=== PATIENT | female | born 1970 | race Caucasian/White ===

== ENCOUNTER 2016-11-01 18:20 | Emergency (ER) | payer OTHER ==
[~2016-11-01] VITALS: Ht 170.2 cm; Wt 61.2 kg
[~2016-11-01 18:20] MED LIST: FERR325T28 PO; FOLI1TAB16 PO
[2016-11-01] MEDS ORDERED: NORCO PO (18:37)
[2016-11-01] MEDS ORDERED: SOMA PO (18:37)
--- NOTE | 2016-11-01 18:58 | NUR ---
Patient is still for blood draw, CT scan & urine sample, endorsed to [facility] patel
[2016-11-01] MEDS ORDERED: IV NORMAL SALINE 1000 ML BAG IV ONE (19:00)
[2016-11-01 19:09] LABS: *BILIRUBIN,URIN NEGATIVE (NEGATIVE); *BLOOD, URINE 1+ (NEGATIVE); *COLOR,URINE YELLOW (YELLOW); *KETONES,URINE NEGATIVE (NEGATIVE); *PROTEIN,URINE NEGATIVE (NEGATIVE); *UROBILINOGEN,URINE 0.2 E.U./dl (NORMAL); LEUKOCYTE ESTERASE ,URINE NEGATIVE (NEGATIVE); NITRITE, URINE POSITIVE (NEGATIVE); PH,URINE 5.5 (5.0-8.0); UGLUCOSE NEGATIVE (NEGATIVE)
[2016-11-01 19:14] LABS: *CLARITY,URINE HAZY (CLEAR)
[2016-11-01 19:15] LABS: BACTERIA,URINE MANY /HPF (NONE SEEN); SQUAMOUS EPITHELIAL CELL,UR FEW /HPF (NONE SEEN)
[2016-11-01 19:16] LABS: MUCUS,URINE MANY /LPF (0-FEW)
[2016-11-01 19:21] LABS: BASOPHILS # (AUTO) 0.1 K/uL (0.0-8.0); BASOPHILS % (AUTO) 0.7 % (0.0-2.0); EOSINOPHILS # (AUTO) 0.1 K/uL (0.0-0.7); EOSINOPHILS % (AUTO) 1.8 % (0.0-7.0); HEMATOCRIT 38.5 % (37-47); HEMOGLOBIN 12.1 G/DL (12.0-16.0); LYMPHOCYTES # (AUTO) 1.7 K/UL (0.8-4.8); LYMPHOCYTES % (AUTO) 22.5 % (20.5-51.5); MEAN CORPUSCULAR HEMOGLOBIN 25.1 UUG (27.0-31.0); MEAN CORPUSCULAR HGB CONC 31 g/dL (32.0-37.0); MEAN CORPUSCULAR VOLUME 80.1 FL (81.0-99.0); MONOCYTES # (AUTO) 0.4 K/UL (0.1-1.30); MONOCYTES % (AUTO) 5.8 % (0.0-11.0); NEUTROPHILS # (AUTO) 5.3 K/UL (1.8-8.9); NEUTROPHILS % (AUTO) 69.2 % (38.5-71.5); PLATELET COUNT (AUTO) 316 K/UL (150-450); RED BLOOD CELL COUNT(AUTO) 4.81 MIL/UL (4.2-5.4); WHITE BLOOD COUNT (AUTO) 7.6 K/UL (4.0-11.2)
[2016-11-01 19:29] LABS: CREATININE 0.6 mg/dL (0.6-1.3); POTASSIUM 3.8 mmol/L (3.5-5.1)
[2016-11-01 19:35] LABS: BILIRUBIN,DIRECT 0.1 mg/dL (0.0-0.2); BILIRUBIN,TOTAL 0.2 mg/dL (0.2-1.0); TOTAL PROTEIN, SERUM 7.2 g/dL (6.4-8.2)
[2016-11-01] MEDS ORDERED: IV NORMAL SALINE 250 ML IV ONE (19:46)
[2016-11-01] MEDS ORDERED: IOHEXOL 300MG/ML 100 ML INFUS..BTL ONE (19:46)
[2016-11-01] MEDS ORDERED: NORMAL SALINE FLUSH 10 ML DISP.SYRIN ONE (19:46)
--- NOTE | 2016-11-01 22:25 | NUR ---
Patient discharged to home in stable conditon. Written and verbal after care instructions given. Patient verbalizes understanding of instructions. Ambulated from ER with stable gait. All belongings with patient. Peripheral IV removed prior to discharge.
[2016-11-01 22:35] VITALS: BP 121/74
== END 2016-11-01 22:25 | disposition home or self-care (01) ==
LOC: ER 18:21
DX: N83.202 Unspecified ovarian cyst, left side (principal); F10.20 Alcohol dependence, uncomplicated; F17.200 Nicotine dependence, unspecified, uncomplicated; Z90.710 Acquired absence of both cervix and uterus; Z91.040 Latex allergy status
CPT/HCPCS: 36415; 83690; 85025; A4663; J3490; J7030; J7050; Q9967

== ENCOUNTER 2016-12-19 03:22 | Emergency (ER) | payer OTHER ==
[~2016-12-19] VITALS: Ht 170.2 cm; Wt 59.0 kg
[~2016-12-19 03:22] MED LIST changes: -FOLI1TAB16 PO; +NORCO PO; +SOMA PO
[2016-12-19] MEDS ORDERED: HYDROCODONE/APAP 10-325 MG TABLET PO ONE (04:15)
[2016-12-19] MEDS ORDERED: diphenhydrAMINE 50 MG CAPSULE PO ONE (04:15)
[2016-12-19] MEDS ORDERED: ASPIRIN 81 MG TAB.CHEW PO ONE (04:15)
[2016-12-19] MEDS ORDERED: CARISOPRODOL 350 MG TABLET PO ONE (04:15)
[2016-12-19] MEDS ORDERED: ONDANSETRON ODT 4 MG TAB.RAPDIS SL ONE (04:15)
[2016-12-19 04:40] LABS: BASOPHILS % (AUTO) 0.6 % (0.0-2.0); EOSINOPHILS # (AUTO) 0.1 K/uL (0.0-0.7); EOSINOPHILS % (AUTO) 1.5 % (0.0-7.0); HEMATOCRIT 41.3 % (37-47); HEMOGLOBIN 12.9 G/DL (12.0-16.0); LYMPHOCYTES # (AUTO) 1.4 K/UL (0.8-4.8); LYMPHOCYTES % (AUTO) 17.6 % (20.5-51.5); MEAN CORPUSCULAR HGB CONC 31 g/dL (32.0-37.0); MEAN CORPUSCULAR VOLUME 86.2 FL (81.0-99.0); MONOCYTES # (AUTO) 0.6 K/UL (0.1-1.30); MONOCYTES % (AUTO) 7.9 % (0.0-11.0); NEUTROPHILS # (AUTO) 6.1 K/UL (1.8-8.9); NEUTROPHILS % (AUTO) 72.4 % (38.5-71.5); PLATELET COUNT (AUTO) 317 K/UL (150-450); RED BLOOD CELL COUNT(AUTO) 4.79 MIL/UL (4.2-5.4); WHITE BLOOD COUNT (AUTO) 8.2 K/UL (4.0-11.2)
--- NOTE | 2016-12-19 04:42 | NUR ---
Pt to room, changed into gown and placed on monitor. NSR. Pt c/o upper back pain radiating to her chest for several weeks getting progressively worse. Pt seen by Dr. Roth, ekg obtained. Labs drawn and sent. Xray obtained. Pt medicated for discomfort, will monitor for effects of medication. Pt resting in position of comfort for self.
[2016-12-19 04:44] LABS: CREATININE 0.8 mg/dL (0.6-1.3); POTASSIUM 3.9 mmol/L (3.5-5.1)
[2016-12-19] MEDS ORDERED: ONDANSETRON ODT 4 MG TAB.RAPDIS ONE (04:44)
[2016-12-19] MEDS ORDERED: ASPIRIN 81 MG TAB.CHEW ONE (04:44)
[2016-12-19] MEDS ORDERED: CARISOPRODOL 350 MG TABLET ONE (04:45)
[2016-12-19] MEDS ORDERED: HYDROCODONE/APAP 10-325 MG TABLET ONE (04:45)
[2016-12-19] MEDS ORDERED: diphenhydrAMINE 50 MG CAPSULE ONE (04:45)
[2016-12-19 04:57] LABS: BILIRUBIN,DIRECT 0.1 mg/dL (0.0-0.2); BILIRUBIN,TOTAL 0.2 mg/dL (0.2-1.0); TOTAL PROTEIN, SERUM 7.3 g/dL (6.4-8.2)
--- NOTE | 2016-12-19 05:15 | NUR ---
Pt sts pain has resolved with medication. Pt stable for discharge per Dr. Roth. Pt given ACI. Pt verbalized understanding of dc instructions. Pt ambulated out of ER with steady gait and ride home.
[2016-12-19 05:43] VITALS: BP 146/75
== END 2016-12-19 05:15 | disposition home or self-care (01) ==
LOC: ER 03:25
DX: R07.89 Other chest pain (principal); M54.9 Dorsalgia, unspecified; M62.830 Muscle spasm of back; F17.200 Nicotine dependence, unspecified, uncomplicated; G89.29 Other chronic pain
CPT/HCPCS: 36415; 70030-TC; 71010; 85025; 93005; A4663; Q0162; Q0163

== ENCOUNTER 2017-05-04 01:16 | Emergency (ER) | payer OTHER ==
[~2017-05-04] VITALS: Ht 170.2 cm; Wt 61.2 kg
[~2017-05-04 01:16] MED LIST changes: -FERR325T28 PO
[2017-05-04] MEDS ORDERED: FLUCONAZOLE 150 MG TABLET (01:35)
[2017-05-04] MEDS ORDERED: CARISOPRODOL 350MG TABLETS (01:35)
[2017-05-04] MEDS ORDERED: FERR325T28 PO (01:38)
[2017-05-04] MEDS ORDERED: TDAP DIPH,PERTUSS,TET VAC/PF 0.5 ML DISP.SYRIN IM ONE ×2 (01:45→02:01)
[2017-05-04] MEDS ORDERED: NEOMY/BACITRA/POLYMYXIN B OINT UD PACKET TP ONE ×2 (01:45→02:01)
--- NOTE | 2017-05-04 02:02 | NUR ---
PLACED DRESSING AND TRIPLE ANTIBIOTIC ON RIGHT FOOT WOUND ORDERED
--- NOTE | 2017-05-04 02:07 | NUR ---
Crutches dispensed. Pt instructed on proper use of crutches. Patient able to demonstrate correct use of crutches.
[2017-05-04] MEDS ORDERED: ONDANSETRON ODT 4 MG TAB.RAPDIS SL ONE (02:15)
--- NOTE | 2017-05-04 02:20 | NUR ---
Patient discharged to home in stable conditon. Written and verbal after care instructions given. Patient verbalizes understanding of instructions.
[2017-05-04 02:21] VITALS: BP 122/74
[2017-05-04] MEDS ORDERED: ONDANSETRON ODT 4 MG TAB.RAPDIS ONE ×2 (02:30→02:31)
== END 2017-05-04 02:22 | disposition home or self-care (01) ==
LOC: ER 01:19
DX: S99.921A Unspecified injury of right foot, initial encounter (principal); G89.29 Other chronic pain; L08.9 Local infection of the skin and subcutaneous tissue, unspecified; Z90.710 Acquired absence of both cervix and uterus; F17.200 Nicotine dependence, unspecified, uncomplicated; W22.8XXA Striking against or struck by other objects, initial encounter; Y93.89 Activity, other specified; Y92.89 Other specified places as the place of occurrence of the external cause; Y99.8 Other external cause status
CPT/HCPCS: 73630; 90471; 90715; 99284; A4663; Q0162 ×2

== ENCOUNTER 2017-08-24 22:56 | Emergency (ER) | payer OTHER ==
[~2017-08-24] VITALS: Ht 170.2 cm; Wt 61.2 kg
[~2017-08-24 22:56] MED LIST changes: +CARISOPRODOL 350MG TABLETS; +FERR325T28 PO; -NORCO PO; -SOMA PO
[2017-08-25 00:28] LABS: BASOPHILS # (AUTO) 0.1 K/uL (0.0-8.0); BASOPHILS % (AUTO) 0.8 % (0.0-2.0); EOSINOPHILS # (AUTO) 0.2 K/uL (0.0-0.7); EOSINOPHILS % (AUTO) 2.3 % (0.0-7.0); HEMATOCRIT 44.2 % (31.2-41.9); LYMPHOCYTES # (AUTO) 2.2 K/uL (20.0-40.0); LYMPHOCYTES % (AUTO) 22.7 % (20.5-51.5); MEAN CORPUSCULAR HEMOGLOBIN 32.1 uug (24.7-32.8); MEAN CORPUSCULAR HGB CONC 34 g/dL (32.3-35.6); MEAN CORPUSCULAR VOLUME 94.7 fL (75.5-95.3); MONOCYTES # (AUTO) 0.7 K/uL (2.0-10.0); MONOCYTES % (AUTO) 7.7 % (0.0-11.0); NEUTROPHILS # (AUTO) 6.4 K/uL (1.8-8.9); NEUTROPHILS % (AUTO) 66.5 % (38.5-71.5); PLATELET COUNT (AUTO) 292 K/uL (179-408); RED BLOOD CELL COUNT(AUTO) 4.67 MIL/uL (3.63-4.92); WHITE BLOOD COUNT (AUTO) 9.6 K/uL (3.8-11.8)
[2017-08-25 00:42] LABS: CARBON DIOXIDE 29 mmol/L (21-32); CHLORIDE 103 mmol/L (98-107); CREATININE 0.8 mg/dL (0.6-1.3); GLUCOSE 85 mg/dL (74-106); POTASSIUM 3.6 mmol/L (3.5-5.1); UREA NITROGEN, BLOOD 18 mg/dL (7-18)
[2017-08-25 00:48] LABS: ALANINE AMINOTRANSFERASE 22 U/L (14-59); ALKALINE PHOSPHATASE 61 U/L (50-136); ASPARTATE AMINOTRANSFERASE 13 U/L (15-37); BILIRUBIN,DIRECT < 0.1 mg/dL (0.0-0.2); BILIRUBIN,TOTAL 0.2 mg/dL (0.2-1.0); TOTAL PROTEIN, SERUM 7.9 g/dL (6.4-8.2)
[2017-08-25] MEDS ORDERED: IV NORMAL SALINE 1000 ML BAG IV ONE ×2 (01:45)
--- NOTE | 2017-08-25 02:08 | NUR ---
PT IN BED. PT RESTING QUIETLY WITH VISITOR AT BEDSIDE. PT GETTING 2ND LITER OF FLUID. 1ST WAS WELL TOLERATED. PT STATED THAT SHE STARTED FEELING BETTER AFTER 1ST LT. VSS. NO SIGNS OF DISTRESS WITNESSED AT THIS TIME.
--- NOTE | 2017-08-25 03:02 | NUR ---
Patient discharged to home in stable conditon. Written and verbal after care instructions given. Patient verbalizes understanding of instructions. Patient reported feeling better and denied anxiety upon discharge. Peripheral IV was removed. Patient able to ambulate unassisted with steady gait. Patient left with all personal belongings.
[2017-08-25 03:34] VITALS: BP 124/82
== END 2017-08-25 03:05 | disposition home or self-care (01) ==
LOC: ER 22:56
DX: F41.9 Anxiety disorder, unspecified (principal); R00.2 Palpitations; E86.0 Dehydration; G89.29 Other chronic pain; F17.210 Nicotine dependence, cigarettes, uncomplicated; F12.10 Cannabis abuse, uncomplicated; Z90.710 Acquired absence of both cervix and uterus; Z91.040 Latex allergy status; Z79.899 Other long term (current) drug therapy
CPT/HCPCS: 36415; 70030-TC; 84443; 85025; 85730; 93005; A4663; J7030

== ENCOUNTER 2019-03-09 13:43 | Emergency (ER) | payer MEDICAID, OTHER ==
[~2019-03-09] VITALS: Ht 170.2 cm; Wt 59.0 kg
[~2019-03-09 13:43] MED LIST changes: -CARISOPRODOL 350MG TABLETS; +CARISOPRODOL 350MG TABLETS PO
[2019-03-09] MEDS ORDERED: OMEP20TA20 PO (13:47)
--- NOTE | 2019-03-09 14:00 | NUR ---
mary lou aggarwal at bedside for mse.
[2019-03-09 14:06] LABS: BASOPHILS % (AUTO) 0.7 % (0.0-2.0); EOSINOPHILS # (AUTO) 0.1 K/uL (0.0-0.7); EOSINOPHILS % (AUTO) 1.3 % (0.0-7.0); HEMATOCRIT 43.1 % (31.2-41.9); HEMOGLOBIN 14.3 g/dL (10.9-14.3); LYMPHOCYTES # (AUTO) 1.9 K/uL (20.0-40.0); LYMPHOCYTES % (AUTO) 26.2 % (20.5-51.5); MEAN CORPUSCULAR HGB CONC 33 g/dL (32.3-35.6); MEAN CORPUSCULAR VOLUME 93.6 fL (75.5-95.3); MONOCYTES # (AUTO) 0.7 K/uL (2.0-10.0); NEUTROPHILS # (AUTO) 4.6 K/uL (1.8-8.9); NEUTROPHILS % (AUTO) 62.8 % (38.5-71.5); PLATELET COUNT (AUTO) 271 K/uL (179-408); RED BLOOD CELL COUNT(AUTO) 4.61 MIL/uL (3.63-4.92); WHITE BLOOD COUNT (AUTO) 7.4 K/uL (3.8-11.8)
[2019-03-09] MEDS ORDERED: IOHEXOL 300MG/ML 100 ML INFUS..BTL ONE (14:06)
[2019-03-09] MEDS ORDERED: SWABABLE VALVE TRANSFER SET EA MC ONE (14:06)
[2019-03-09] MEDS ORDERED: IV NORMAL SALINE 250 ML IV ONE (14:06)
[2019-03-09 14:07] LABS: *BILIRUBIN,URIN NEGATIVE (NEGATIVE); *BLOOD, URINE NEGATIVE (NEGATIVE); *CLARITY,URINE CLEAR (CLEAR); *COLOR,URINE YELLOW (YELLOW); *KETONES,URINE NEGATIVE (NEGATIVE); *URINE HCG, QUAL NEGATIVE (NEGATIVE); *UROBILINOGEN,URINE 0.2 E.U./dl (NORMAL); LEUKOCYTE ESTERASE ,URINE NEGATIVE (NEGATIVE); NITRITE, URINE NEGATIVE (NEGATIVE); PH,URINE 7.5 (5.0-8.0); UGLUCOSE NEGATIVE (NEGATIVE)
[2019-03-09] MEDS ORDERED: LIDOCAINE VISCUS 2% 15 ML UDC ONE (14:10)
[2019-03-09] MEDS ORDERED: MAG HYDROX/AL HYDROX/SIMETH 30 ML LIQUID UDC ONE (14:10)
[2019-03-09] MEDS ORDERED: ONDANSETRON ODT 4 MG TAB.RAPDIS ONE (14:10)
[2019-03-09] MEDS ORDERED: LORAZEPAM 2 MG/1 ML VIAL IV ONE (14:15)
[2019-03-09] MEDS ORDERED: MAG HYDROX/AL HYDROX/SIMETH 30 ML LIQUID UDC PO ONE (14:15)
[2019-03-09] MEDS ORDERED: LIDOCAINE VISCUS 2% 15 ML UDC MM ONE (14:15)
[2019-03-09] MEDS ORDERED: ONDANSETRON ODT 4 MG TAB.RAPDIS SL ONE (14:15)
[2019-03-09 14:17] LABS: CREATININE 0.6 mg/dL (0.6-1.3)
[2019-03-09] MEDS ORDERED: LORAZEPAM 2 MG/1 ML VIAL ONE (14:22)
[2019-03-09 14:23] LABS: BILIRUBIN,DIRECT 0.1 mg/dL (0.0-0.2); BILIRUBIN,TOTAL 0.4 mg/dL (0.2-1.0); TOTAL PROTEIN, SERUM 7.5 g/dL (6.4-8.2)
--- NOTE | 2019-03-09 14:41 | NUR ---
PATIENT BACK FROM CT NOTED NOT IN ANY DISTRESS.
--- NOTE | 2019-03-09 15:56 | NUR ---
SETH DESAI PERFORMING PELVIC EXAM W/ JORGE L Rivas RN (FEMALE [employer]).
--- NOTE | 2019-03-09 16:06 | NUR ---
Patient discharged to home in stable conditon. Written and verbal after care instructions given. Patient verbalizes understanding of instructions. ALL BELONGINGS W/ PT. PT SELF-AMBULATED W/O DIFFICULTY. 20G IV ACCESS IN RAC REMOVED PRIOR TO D/C - INNER CANNULA INTACT. PT WILL BE DRIVEN HOME BY FRIEND IN PRIVATE VEHICLE.
[2019-03-09 16:07] VITALS: BP 129/81
== END 2019-03-09 16:07 | disposition home or self-care (01) ==
LOC: ER 13:45
DX: K42.9 Umbilical hernia without obstruction or gangrene (principal); K40.90 Unilateral inguinal hernia, without obstruction or gangrene, not specified as recurrent; N76.0 Acute vaginitis; B96.89 Other specified bacterial agents as the cause of diseases classified elsewhere; F17.200 Nicotine dependence, unspecified, uncomplicated; F12.10 Cannabis abuse, uncomplicated; Z90.710 Acquired absence of both cervix and uterus; Z79.899 Other long term (current) drug therapy
CPT/HCPCS: 36415; 74177; 80048; 80076; 81001; 83690; 84703; 85025; 96374; 99284; J2060; Q9967; A4663; J7050; Q0162

== ENCOUNTER 2019-10-16 22:20 | Emergency (ER) | payer MEDICAID ==
[~2019-10-16] VITALS: Ht 165.1 cm; Wt 63.5 kg
[~2019-10-16 22:20] MED LIST changes: -FERR325T28 PO; +OMEP20TA20 PO
[2019-10-16] MEDS ORDERED: SULFAMETH/TRIMETH 800/160 MG TABLET ONE (22:42)
[2019-10-16] MEDS ORDERED: MUPIROCIN 2% OINT 22 GM TUBE ONE (22:42)
[2019-10-16] MEDS ORDERED: SULFAMETH/TRIMETH 800/160 MG TABLET PO ONE (22:45)
[2019-10-16] MEDS ORDERED: MUPIROCIN 2% OINT 22 GM TUBE TP ONE (22:45)
--- NOTE | 2019-10-16 22:48 | NUR ---
Patient discharged to home in stable condition. Written and verbal after care instructions given. Patient verbalizes understanding of instructions. Stressed follow up or return to ER for worsening s/s.
[2019-10-16 22:50] VITALS: BP 157/88
== END 2019-10-16 22:51 | disposition home or self-care (01) ==
LOC: ER 22:24
DX: L02.212 Cutaneous abscess of back [any part, except buttock and flank] (principal); G89.29 Other chronic pain; M54.9 Dorsalgia, unspecified; Z90.710 Acquired absence of both cervix and uterus
CPT/HCPCS: A4663

== ENCOUNTER 2020-01-17 23:51 | Emergency (ER) | payer MEDICAID ==
[~2020-01-17] VITALS: Ht 170.2 cm; Wt 61.2 kg
--- NOTE | 2020-01-18 00:05 | NUR ---
Dr. Arauz at bedside for MSE.
[2020-01-18] MEDS ORDERED: SULFAMETH/TRIMETH 800/160 MG TABLET PO ONE (00:15)
[2020-01-18] MEDS ORDERED: HYDROCODONE/APAP 10-325 MG TABLET PO ONE (00:15)
--- NOTE | 2020-01-18 00:21 | NUR ---
Patient cleared for discharged to home. Written and verbal after care instructions given. Emphasized importance of following medications orders and completing antibiotic therapy as prescribed. Warning signs for allergic reactions reviewed. Also highlighted risks and benefits of taking narcotics. Patient verbalizes understanding of instructions. Stressed follow up with PCP/chiropractor or return to ER for worsening s/s. Pt ambulated out of ER in steady gait, and in stable condition.
[2020-01-18 00:23] VITALS: BP 110/80
== END 2020-01-18 00:23 | disposition home or self-care (01) ==
LOC: ER 23:55
DX: N39.0 Urinary tract infection, site not specified (principal); Z91.040 Latex allergy status; F17.200 Nicotine dependence, unspecified, uncomplicated
CPT/HCPCS: A4663

== ENCOUNTER 2020-05-28 00:32 | Emergency (ER) | payer MEDICAID ==
[~2020-05-28] VITALS: Ht 170.2 cm; Wt 61.2 kg
--- NOTE | 2020-05-28 00:52 | NUR ---
Dr. Gan at bedside for MSE.
--- NOTE | 2020-05-28 00:56 | NUR ---
Xray at bedside.
[2020-05-28] MEDS ORDERED: MORPHINE SULFATE 4 MG/1 ML DISP.SYRIN IM ONE (01:00)
[2020-05-28] MEDS ORDERED: MORPHINE SULFATE 4 MG/1 ML DISP.SYRIN ONE (01:06)
--- NOTE | 2020-05-28 02:51 | NUR ---
Patient discharged to home in stable condition. Written and verbal after care instructions given. Patient verbalizes understanding of instructions. Stressed follow up or return to ER for worsening s/s. Patient out of ER on wheelchair, assisted patient on transfer to car, no falls noted, patient has her own crutches, gait training provided, no acute signs of distress, VSS, all belongings taken, provided with copies of xray results and CD, to be driven home by friend via private vehicle.
[2020-05-28 02:52] VITALS: BP 110/70
== END 2020-05-28 02:56 | disposition home or self-care (01) ==
LOC: ER 00:38
DX: S82.831A Other fracture of upper and lower end of right fibula, initial encounter for closed fracture (principal); W20.8XXA Other cause of strike by thrown, projected or falling object, initial encounter; Y92.89 Other specified places as the place of occurrence of the external cause; G89.29 Other chronic pain; M54.9 Dorsalgia, unspecified; Z90.710 Acquired absence of both cervix and uterus
CPT/HCPCS: 29515; 73610; 73630; 96372; 99284; J2270; A4663

== ENCOUNTER 2020-06-12 18:32 | Emergency (ER) | payer MEDICAID ==
[~2020-06-12] VITALS: Ht 170.2 cm; Wt 63.5 kg
--- NOTE | 2020-06-12 19:05 | NUR ---
PT IS IN ROOM #2A . DR CONCEPCION EVALUATED THE PT.
--- NOTE | 2020-06-12 19:18 | NUR ---
exhaust emissions automotive technician at bedside. [facility] was notified about patient.
--- NOTE | 2020-06-12 20:29 | NUR ---
Splint re-placed on patient, as ordered by Dr. Conway. Neurovascular check done before and after, normal. Pt verbalized that dressing is not too tight or too loose. Pt verbalizes feeling comfortable and much better.
--- NOTE | 2020-06-12 20:30 | NUR ---
Patient discharged to home in stable condition. Pt has been reinforced with crutch education. Written and verbal after care instructions given. Patient verbalizes understanding of instructions. Stressed to follow up or return to ER for worsening s/s. Cont follow up with Ortho surgeon, pt has appointment tomorrow. Pt able to ambulate out of Ed in steady gait, and stable condition.
[2020-06-12 20:46] VITALS: BP 120/70
== END 2020-06-12 20:58 | disposition home or self-care (01) ==
LOC: ER 18:33
DX: G89.18 Other acute postprocedural pain (principal); S82.831D Other fracture of upper and lower end of right fibula, subsequent encounter for closed fracture with routine healing; X58.XXXD Exposure to other specified factors, subsequent encounter; F42.9 Obsessive-compulsive disorder, unspecified; G89.29 Other chronic pain; M54.9 Dorsalgia, unspecified; Z91.040 Latex allergy status; Z90.710 Acquired absence of both cervix and uterus
CPT/HCPCS: 73610; A4663

== ENCOUNTER 2023-02-28 14:00 | Emergency (ER) | payer MEDICAID ==
[~2023-02-28] VITALS: Ht 170.2 cm; Wt 63.5 kg
[2023-02-28] MEDS ORDERED: TETRACAINE HCL 0.5% OPHT DROP 2 ML BOTTLE ONE (15:09)
[2023-02-28] MEDS ORDERED: FLUORESCEIN SODIUM 1 MG STRIP ONE (15:09)
[2023-02-28] MEDS ORDERED: FLUORESCEIN SODIUM 1 MG STRIP OP ONE (15:15)
[2023-02-28] MEDS ORDERED: TETRACAINE HCL 0.5% OPHT DROP 2 ML BOTTLE OP ONE (15:15)
[2023-02-28] MEDS ORDERED: CIPR2.5D14 EACHEYE (16:10)
[2023-02-28] MEDS ORDERED: CIPROFLOXACIN 0.3% OPHT DROP 2.5 ML BOTTLE OP ONE (16:15)
[2023-02-28] MEDS ORDERED: CIPROFLOXACIN 0.3% OPHT DROP 2.5 ML BOTTLE ONE (16:46)
[2023-02-28 17:36] VITALS: BP 136/74; TEMP 98.3; O2SAT 97
== END 2023-02-28 17:37 | disposition home or self-care (01) ==
LOC: ER 14:03
DX: B30.9 Viral conjunctivitis, unspecified (principal); F17.210 Nicotine dependence, cigarettes, uncomplicated; G89.29 Other chronic pain; M54.9 Dorsalgia, unspecified; Z90.710 Acquired absence of both cervix and uterus; Z91.040 Latex allergy status; Z79.2 Long term (current) use of antibiotics
CPT/HCPCS: A4606; A4663

== ENCOUNTER 2023-10-30 00:21 | Emergency (ER) | payer MEDICAID ==
[~2023-10-30] VITALS: Ht 170.2 cm; Wt 61.2 kg
[~2023-10-30 00:21] MED LIST changes: -CARISOPRODOL 350MG TABLETS PO; +CIPR2.5D14 EACHEYE; -OMEP20TA20 PO
[2023-10-30 00:23] VITALS: O2SAT 99
[2023-10-30] MEDS ORDERED: ECON15CR4 TP (00:47)
[2023-10-30] MEDS ORDERED: FLUC200T PO (00:47)
== END 2023-10-30 01:00 | disposition home or self-care (01) ==
LOC: ER 00:27
DX: J40 Bronchitis, not specified as acute or chronic (principal); R21 Rash and other nonspecific skin eruption; J30.81 Allergic rhinitis due to animal (cat) (dog) hair and dander; F32.A Depression, unspecified; F17.200 Nicotine dependence, unspecified, uncomplicated; Z90.49 Acquired absence of other specified parts of digestive tract; Z79.899 Other long term (current) drug therapy; Z91.040 Latex allergy status; Y92.89 Other specified places as the place of occurrence of the external cause
CPT/HCPCS: A4606; A4663

== ENCOUNTER 2024-06-14 02:40 | Emergency (ER) | payer MEDICAID, OTHER ==
[~2024-06-14] VITALS: Ht 170.2 cm; Wt 61.2 kg
[~2024-06-14 02:40] MED LIST changes: +ECON15CR4 TP; +FLUC200T PO
[2024-06-14] MEDS ORDERED: AMOX-430 PO (04:18)
[2024-06-14] MEDS ORDERED: [UNRECOGNIZED DRUG - CODE] PO (04:18)
[2024-06-14] MEDS ORDERED: FLUT16SP16 BNOSTRILS (04:18)
[2024-06-14 05:30] VITALS: BP 105/55; O2SAT 100
== END 2024-06-14 05:33 | disposition home or self-care (01) ==
LOC: ER 02:54
DX: J01.90 Acute sinusitis, unspecified (principal); E78.5 Hyperlipidemia, unspecified; F17.200 Nicotine dependence, unspecified, uncomplicated; R04.0 Epistaxis; Z88.7 Allergy status to serum and vaccine; Z90.710 Acquired absence of both cervix and uterus
CPT/HCPCS: 36415; A4606; A4663